=== PATIENT | female | born 1945 | race Caucasian/White ===

== ENCOUNTER 2018-07-21 18:00 | Emergency (ER) | payer OTHER ==
[~2018-07-21] VITALS: Ht 165.1 cm; Wt 100.5 kg
[~2018-07-21 18:00] MED LIST: ACETAMINOPHEN325 M1 PO; ADULT LOW DOSE81 MG PO; ALIGN4 MG PO; ARIXTRA; ASA5UEC PO; ASPIRIN325; B-100 COMPLEX1 EAC1 PO; COLACE 100 MG100 MG; DIOVAN HCT 1601 EACH PO; FISH OIL 1,0001 EAC5 PO; GLUCOPHAGE1000 MG PO; LASIX 20 MG TAB20 MG PO; METAMUCIL PAC1 UDPK1; MULTIVITAMINS PO; OXYIR5 MG; PERCOCET 5-3251 EACH; PERCOCET PO; TUMS PO; VICTOZA0.6 MG/0.1 SUBQ; VITAMIN D1000 UNI1 PO; XANAX 0.5 MG0.5 M1 PO
[2018-07-21] MEDS ORDERED: PLAVIX 75 MG TA75 M1 PO (18:10)
[2018-07-21] MEDS ORDERED: CELEXA40 MG PO (18:10)
[2018-07-21 18:34] LABS: ABSOLUTE BASOPHILS 0.1 thou/uL (0.0-0.2); ABSOLUTE EOSINOPHILS 0.1 thou/uL (0.0-0.7); ABSOLUTE LYMPHOCYTES 1.9 thou/uL (0.8-5.3); ABSOLUTE MONOCYTES 0.4 thou/uL (0.0-1.2); ABSOLUTE NEUTROPHILS 6.3 thou/uL (1.6-8.1); BASOPHILS 0.8 %; EOSINOPHILS 1.2 %; HEMATOCRIT 38.1 % (37.0-47.0); HEMOGLOBIN 12.9 gm/dL (12.0-15.0); MCH 30.7 pg (26.0-34.0); MCHC 33.8 g/dL (28.0-37.0); MCV 90.9 fL (80.0-100.0); MONOCYTES 4.8 %; MPV 6.7 fl. (7.2-11.1); NUCLEATED RBCS 0 /100WBC; PLATELET COUNT* 360 thou/uL (150-400); POLYS 71.2 %; RBC 4.19 mil/uL (4.20-5.00); RDW-CV 14.3 % (10.5-14.5); WBC 8.8 thou/uL (4.0-11.0)
[2018-07-21 18:41] LABS: ANION GAP 8 mmol/L (7-16); BUN 14 mg/dL (7-18); CALCIUM 8.5 mg/dL (8.5-10.1); CHLORIDE 99 mmol/L (98-107); CO2 26 mmol/L (21-32); CREATININE 0.9 mg/dL (0.6-1.3); GLUCOSE 138 mg/dL (70-99); INR 1.1; PROTIME 10.9 Seconds (9.20-11.50); SODIUM 133 mmol/L (136-145)
[2018-07-21 18:53] LABS: ALBUMIN 3.5 g/dL (3.4-5.0); ALKALINE PHOSPHATASE 79 U/L (46-116); LIPASE 153 U/L (73-393); NT-PRO BRAIN NAT PEPTIDE 150 pg/mL (<300); SGOT 24 U/L (15-37); SGPT 27 U/L (30-65); TOTAL BILIRUBIN 0.2 mg/dL (<0.1-1.0); TOTAL PROTEIN 7.3 g/dL (6.4-8.2); TROPONIN-I LEVEL <0.06 ng/mL (<0.06)
[2018-07-21] MEDS ORDERED: ACETAMINOPHEN-1 EAC1 PO (20:09)
[2018-07-21 20:40] VITALS: BP 122/64
--- NOTE | 2018-07-22 11:44 | EKG ---
[place] [address] ELECTROCARDIOGRAM REPORT Name: LETI MCKEON [id number] Admission: 07/21/18 Attend Phys: Discharge: 07/21/18 Date of : 47 Report #: [id number] THIS REPORT FOR: //name// [facility] ED Test Date: 2018-07-21 Test Time: 18:32:22 Pat Name: LETI MCKEON Department: Room: Gender: F Manager Cath Lab: ESTEBAN : 1945 Requested By: Xiang Hayes Order Number: [id number] MD: Dannie Schmitt Measurements Intervals [place] Rate: 76 P: 69 NV: 137 QRS: -18 QRSD: 113 T: 19 QT: 417 QTc: 469 Interpretive Statements Sinus rhythm Nonspecific T abnormalities, anterior leads Baseline wander in lead(s) II Compared to ECG 05/24/2015 15:43:18 T-wave abnormality still present Electronically Signed On 07-22-2018 11:44:30 MICROBIOLOGY TECHNICIAN by Dannie Schmitt [email or web address] <ELECTRONICALLY SIGNED> By: Dannie Schmitt MD, [facility] 07/22/18 [id number] 183 Dannie Schmitt MD, [facility] /EPI
== END 2018-07-21 20:40 | disposition home or self-care (01) ==
LOC: M.ERS 18:00
PROVIDERS: Emergency Medicine
DX: S32.010A Wedge compression fracture of first lumbar vertebra, initial encounter for closed fracture (principal); R55 Syncope and collapse; M25.572 Pain in left ankle and joints of left foot; M25.511 Pain in right shoulder; M25.551 Pain in right hip; M25.552 Pain in left hip; I10 Essential (primary) hypertension; E11.9 Type 2 diabetes mellitus without complications; Z86.73 Personal history of transient ischemic attack (TIA), and cerebral infarction without residual deficits; Z88.6 Allergy status to analgesic agent; Z88.5 Allergy status to narcotic agent; Z91.018 Allergy to other foods; Z88.8 Allergy status to other drugs, medicaments and biological substances; W18.39XA Other fall on same level, initial encounter; Y93.89 Activity, other specified; Y92.091 Bathroom in other non-institutional residence as the place of occurrence of the external cause; Y99.8 Other external cause status